=== PATIENT | female | born 1945 | race Caucasian/White ===

== ENCOUNTER 2024-12-16 10:24 | Outpatient (CLI) | payer MEDICARE, SELFPAY ==
--- NOTE | 2024-12-16 10:15 | CRLHL7_ITS ---
For Patients: As a result of the Century Cures Act, medical imaging exams and procedure reports are released immediately into your electronic medical record. You may view this report before your referring provider. If you have questions, please contact your health care provider. INDICATION: Low back pain. TECHNIQUE: Multisequence multiplanar MRI of the lumbar spine without the use of intravenous contrast. COMPARISON: Lumbar spine radiographs dated 06/30/2024. FINDINGS: Leftward lumbar curvature with apex at L3-L4. Vertebral body heights are maintained. A T12 vertebral hemangioma is incidentally noted. No T1 hypointense infiltrative lesion is identified. There is multilevel disc desiccation and height loss. The conus medullaris terminates normally at the L1-L2 level. T12-L1: No significant spinal canal foraminal stenosis. Moderate facet joint arthrosis. L2: Symmetric disc bulge. Moderate facet joint arthrosis. No significant spinal canal or neural foraminal stenosis. L2-L3: Shallow symmetric disc bulge and posterior endplate osteophytic ridging. Moderate spinal canal stenosis with narrowing of the right lateral recess. No high-grade neural foraminal narrowing. L3-L4: Shallow symmetric disc bulge. Advanced facet joint arthrosis. Mild-moderate spinal canal stenosis. No high-grade neural foraminal narrowing. L4-L5: Shallow symmetric disc bulge. Advanced facet joint arthrosis. Mild-moderate spinal canal stenosis with narrowing of the lateral recesses. Mild-moderate right and mild left neural foraminal narrowing. L5-S1: Shallow symmetric disc bulge. Moderate facet joint arthrosis. Small left subarticular disc protrusion narrowing the lateral recess with questionable mass effect on the traversing S1 nerve roots (series 5, image 11). No high-grade spinal canal or neural foraminal stenosis. IMPRESSION: 1. Leftward lumbar curvature with apex at L3-L4. 2. At L2-L3, moderate spinal canal stenosis with narrowing of the right lateral recess. 3. At L3-L4, mild-moderate spinal canal stenosis 4. At L4-L5, mild-moderate spinal canal stenosis and right neural foraminal narrowing. 5. At L5-S1, small left subarticular disc protrusion narrowing the lateral recesses questionably contacting the traversing left S1 nerve roots (series 5, image 11). Dictated by Edvin Armstrong MD @ 12/18/2024 10:43:13 PM (Electronically Signed)
== END 2024-12-16 10:25 | disposition home or self-care (01) ==
LOC: MRI 10:26
PROVIDERS: PCP Student in an Organized Health Care Education/Training Program; Visit Provider Family Medicine
DX: M54.50 Low back pain, unspecified (principal); M48.061 Spinal stenosis, lumbar region without neurogenic claudication; M51.26 Other intervertebral disc displacement, lumbar region; M51.27 Other intervertebral disc displacement, lumbosacral region
CPT/HCPCS: 72148